=== PATIENT | female | born 1985 | race Caucasian/White ===

== ENCOUNTER 2016-08-20 12:57 | Inpatient (IN) | payer OTHER ==
[~2016-08-20] VITALS: Ht 161 cm; Wt 80.7 kg
[2016-08-20] MEDS ORDERED: RINGERS SOLUTION,LACTATED 1,000 ML IV PRN (15:43)
[2016-08-20] MEDS ORDERED: OXYTOCIN 30 UNITS/LACT RINGERS 500 ML IV ONE (15:43)
[2016-08-20] MEDS ORDERED: METOCLOPRAMIDE HCL 5 MG/ML 2 ML VIAL IVP PRN (15:45)
[2016-08-20] MEDS ORDERED: CITRIC ACID/SODIUM CITRATE 30 ML SOLUTION UDCUP PO PRN (15:45)
[2016-08-20] MEDS ORDERED: PREN1TAB80 PO (16:09)
[2016-08-20 16:17] LABS: BASOPHILS % (AUTO) 0.4 % (0.0-2.0); EOSINOPHILS % (AUTO) 1.2 % (1.0-6.0); HEMATOCRIT 39.3 % (36-46); HEMOGLOBIN 12.9 g/dL (12.0-16.0); LYMPHOCYTES # (AUTO) 1.3 K/uL (1.0-4.8); LYMPHOCYTES % (AUTO) 17.8 % (22.0-44.0); MEAN CORPUSCULAR HEMOGLOBIN 30.8 pg (26.0-34.0); MEAN CORPUSCULAR HGB CONC 32.9 G/dL (31.0-37.0); MEAN CORPUSCULAR VOLUME 94 fL (80-100); MONOCYTES # (AUTO) 0.6 K/uL (0.1-1.0); MONOCYTES % (AUTO) 7.6 % (2.0-9.0); NEUTROPHILS # (AUTO) 5.3 K/uL (1.8-7.7); RED BLOOD CELL COUNT(AUTO) 4.19 MIL/uL (4.00-5.20); RED CELL DISTRIBUTION WIDTH 12.8 % (11.5-14.5); WHITE BLOOD COUNT (AUTO) 7.3 K/uL (4.5-11.0)
[2016-08-20] MEDS: RINGERS SOLUTION,LACTATED 1,000 ML IV SCH ×3 (16:29→23:53)
[2016-08-20 16:35] VITALS: BP 117/73
[2016-08-20] MEDS ORDERED: DINOPROSTONE 10 MG VAGINAL SUPPOSITORY VG ONE (17:00)
[2016-08-20] MEDS ORDERED: OXYTOCIN 30 UNITS/LACT RINGERS 500 ML IV PRN (18:18)
[2016-08-21] MEDS: FentaNYL CITRATE-PF 100 MCG/2 ML VIAL IVP PRN ×2 (08:05→08:50)
[2016-08-21] MEDS: RINGERS SOLUTION,LACTATED 1,000 ML IV SCH ×2 (09:43→17:06)
[2016-08-21] MEDS ORDERED: FentaNYL/BUPIV 0.125%/NS/PF 200 ML ED ONE (09:52)
[2016-08-21] MEDS ORDERED: FentaNYL/BUPIV 0.125%/NS/PF 200 ML ED PRN (10:33)
[2016-08-21] MEDS ORDERED: ONDANSETRON HCL 4 MG/2 ML VIAL IVP PRN (10:45)
[2016-08-21] MEDS ORDERED: NALBUPHINE HCL 10 MG/ML VIAL IVP PRN ×2 (10:45)
[2016-08-21] MEDS ORDERED: DiphenhydrAMINE HCL 50 MG/ML VIAL IVP PRN (10:45)
[2016-08-21] MEDS ORDERED: BUPIVACAINE HCL/PF 0.5% 10 ML VIAL ONE (18:15)
[2016-08-21] MEDS ORDERED: LIDOCAINE HCL/PF 2% 5 ML VIAL ONE (18:15)
[2016-08-21] MEDS ORDERED: AMPICILLIN SODIUM 2 GM/NS 100 ML IV ONE (19:00)
[2016-08-21] MEDS ORDERED: OxyCODONE HCL/ACETAMINOPHEN 5-325 MG TABLET PO PRN ×2 (21:15)
[2016-08-21] MEDS ORDERED: LANOLIN 7 GM OINTMENT TP PRN (21:15)
[2016-08-21] MEDS ORDERED: METHYLERGONOVINE MALEATE 0.2 MG TABLET PO PRN (21:15)
[2016-08-21] MEDS ORDERED: GLYCERIN/WITCH HAZEL LEAF 40 PADS JAR TP PRN (21:15)
[2016-08-21] MEDS ORDERED: BENZOCAINE 20%/MENTHOL 56 GM SPRAY CANISTER TP PRN (21:15)
[2016-08-21] MEDS ORDERED: RINGERS SOLUTION,LACTATED 1,000 ML IV SCH (21:45)
[2016-08-21] MEDS: MAGNESIUM HYDROXIDE SUSPENSION 30 ML UDCUP PO PRN (22:10)
[2016-08-21] MEDS: SENNA/DOCUSATE SODIUM 187-50 MG TABLET PO PRN (22:10)
[2016-08-21] MEDS: OXYGEN THERAPY IH SCH ×2 (22:10→22:11)
[2016-08-21] MEDS: IBUPROFEN 800 MG TABLET PO PRN (22:10)
[2016-08-21] MEDS ORDERED: AMPICILLIN SODIUM 1 GM/NS 50 ML IV SCH (23:00)
[2016-08-22] MEDS: AMPICILLIN SODIUM 2 GM/NS 100 ML IV SCH ×4 (01:11→18:40)
[2016-08-22 06:03] LABS: BASOPHILS % (AUTO) 0.1 % (0.0-2.0); EOSINOPHILS % (AUTO) 0.4 % (1.0-6.0); HEMATOCRIT 31.2 % (36-46); HEMOGLOBIN 10.3 g/dL (12.0-16.0); LYMPHOCYTES # (AUTO) 1.4 K/uL (1.0-4.8); LYMPHOCYTES % (AUTO) 10.4 % (22.0-44.0); MEAN CORPUSCULAR HEMOGLOBIN 31.1 pg (26.0-34.0); MEAN CORPUSCULAR HGB CONC 33.1 G/dL (31.0-37.0); MEAN CORPUSCULAR VOLUME 94 fL (80-100); MONOCYTES # (AUTO) 1.1 K/uL (0.1-1.0); MONOCYTES % (AUTO) 8.2 % (2.0-9.0); NEUTROPHILS % (AUTO) 80.9 % (40.0-70.0); RED BLOOD CELL COUNT(AUTO) 3.31 MIL/uL (4.00-5.20); RED CELL DISTRIBUTION WIDTH 13.1 % (11.5-14.5); WHITE BLOOD COUNT (AUTO) 13.6 K/uL (4.5-11.0)
[2016-08-22] MEDS: IBUPROFEN 800 MG TABLET PO PRN (06:19)
[2016-08-22] MEDS: SENNA/DOCUSATE SODIUM 187-50 MG TABLET PO PRN (21:26)
[2016-08-22] MEDS: MAGNESIUM HYDROXIDE SUSPENSION 30 ML UDCUP PO PRN (21:26)
[2016-08-23] MEDS: AMPICILLIN SODIUM 2 GM/NS 100 ML IV SCH ×2 (00:43→06:51)
[2016-08-23] MEDS: IBUPROFEN 800 MG TABLET PO PRN (00:48)
[2016-08-23 07:14] LABS: BASOPHILS % (AUTO) 0.4 % (0.0-2.0); EOSINOPHILS % (AUTO) 2.3 % (1.0-6.0); HEMATOCRIT 28.1 % (36-46); HEMOGLOBIN 9.3 g/dL (12.0-16.0); LYMPHOCYTES # (AUTO) 1.8 K/uL (1.0-4.8); LYMPHOCYTES % (AUTO) 23.4 % (22.0-44.0); MEAN CORPUSCULAR HEMOGLOBIN 31.4 pg (26.0-34.0); MEAN CORPUSCULAR HGB CONC 33.2 G/dL (31.0-37.0); MEAN CORPUSCULAR VOLUME 95 fL (80-100); MONOCYTES # (AUTO) 0.6 K/uL (0.1-1.0); MONOCYTES % (AUTO) 7.9 % (2.0-9.0); NEUTROPHILS # (AUTO) 5.1 K/uL (1.8-7.7); RED BLOOD CELL COUNT(AUTO) 2.96 MIL/uL (4.00-5.20); WHITE BLOOD COUNT (AUTO) 7.7 K/uL (4.5-11.0)
[2016-08-23] MEDS ORDERED: IBUP-2070 PO (10:47)
[2016-08-23] MEDS ORDERED: DSS100 PO (10:49)
== END 2016-08-23 13:30 | disposition home or self-care (01) | DRG 775 ==
LOC: OBSVTOIN 14:40 → 4S 14:40
PROVIDERS: ADMIT Obstetrics & Gynecology; ATTEND Obstetrics & Gynecology
PROC: 10D07Z6 Extraction of Products of Conception, Vacuum, Via Natural or Artificial Opening (ICD-10-PCS; principal; 2016-08-21)
PROC: 10907ZC Drainage of Amniotic Fluid, Therapeutic from Products of Conception, Via Natural or Artificial Opening (ICD-10-PCS; 2016-08-21)
PROC: 3E033VJ Introduction of Other Hormone into Peripheral Vein, Percutaneous Approach (ICD-10-PCS; 2016-08-21)
PROC: 0W8NXZZ Division of Female Perineum, External Approach (ICD-10-PCS; 2016-08-21)
PROC: 00HU33Z Insertion of Infusion Device into Spinal Canal, Percutaneous Approach (ICD-10-PCS; 2016-08-21)
PROC: 3E0R3CZ (ICD-10-PCS; 2016-08-21)
DX: O77.0 Labor and delivery complicated by meconium in amniotic fluid (principal); O69.81X0 Labor and delivery complicated by cord around neck, without compression, not applicable or unspecified; Z3A.40 40 weeks gestation of pregnancy; Z37.0 Single live birth
CPT/HCPCS: 88307; J0290; J2590; J3010; J3490; J7120